=== PATIENT | female | born 2000 | race Caucasian/White ===

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

== ENCOUNTER → 2019-10-15 | Outpatient (CLI) | payer OTHER ==
[2019-10-15 16:33] LABS: BASO # 0.1 x10^3/uL (0.0-0.2); BASO % 1 % (0-3); EOS # 0.1 x10^3/uL (0.0-0.7); EOS % 1 % (0-3); HEMATOCRIT 35.2 % (36.0-47.0); LYMPH # 1.9 x10^3/uL (1.0-4.8); LYMPH % 30 % (24-48); MEAN CORPUSCULAR HEMOGLOBIN 22 pg (25-35); MEAN CORPUSCULAR HGB CONC 31 g/dL (31-37); MEAN CORPUSCULAR VOLUME 69 fL (79-100); MONO # 0.7 x10^3/uL (0.0-1.1); MONO % 11 % (0-9); NEUT # 3.7 x10^3/uL (1.8-7.7); NEUT % 58 % (31-73); PLATELET COUNT 274 x10^3/uL (140-400); RED BLOOD COUNT 5.09 x10^6/uL (3.50-5.40); RED CELL DISTRIBUTION WIDTH 18.9 % (11.5-14.5); WHITE BLOOD COUNT 6.4 x10^3/uL (4.0-11.0)
[2019-10-15 17:04] LABS: ALBUMIN 3.8 g/dL (3.4-5.0); ALBUMIN/GLOBULIN RATIO 0.8 (1.0-1.7); CALCIUM 9.1 mg/dL (8.5-10.1); CREATININE 0.9 mg/dL (0.6-1.0); GFR 79.8; POTASSIUM 4.8 mmol/L (3.5-5.1); TOTAL BILIRUBIN 0.2 mg/dL (0.2-1.0); TOTAL PROTEIN 8.5 g/dL (6.4-8.2)
[2019-10-15 17:14] LABS: PREG TEST PT QUAL NEGATIVE (NEG)
[2019-10-15 19:09] LABS: ANISOCYTOSIS SLIGHT; HYPOCHROMIA MOD; MICROCYTOSIS MOD
[2019-10-15 19:10] LABS: PLT ESTIMATE ADEQUATE (ADEQUATE)
== END | disposition home or self-care (01) ==
LOC: LAB 16:08
PROVIDERS: ATTEND Psychiatry & Neurology Neurology
DX: R51 Headache (principal); R00.0 Tachycardia, unspecified
CPT/HCPCS: 36415; 80053; 84703; 85025; 85651

== ENCOUNTER → 2019-10-28 | Outpatient (CLI) | payer OTHER ==
[~2019-10-28] MED LIST: GADOTERATE 7.5 MMOL/15ML VIAL. IVP ONE
--- NOTE | 2019-10-28 10:17 | EKG ---
[facility] [address] [place] [address] Test Date: 2019-10-28 Test Time: 10:09:33 Pat Name: SAUL BEAL Department: Room: Gender: F Oxygen Tank Filler: SARAH : 2000 Requested By: KELLI NG Order Number: [id number] Reading MD: Measurements Intervals [place] Rate: 93 P: -28 PA: 120 QRS: 42 QRSD: 72 T: 39 QT: 344 QTc: 430 Interpretive Statements SINUS RHYTHM LEFT ATRIAL ABNORMALITY ABNORMAL ECG RI6.02 No previous ECG available for comparison
--- NOTE | 2019-10-28 11:15 | RAD ---
MRI Brain with and without contrast History: Increasing headaches Technique: Multiplanar, multi sequential pre and postcontrast MR imaging was performed of the brain. Comparison: None Findings: There is some motion degradation. There is no evidence of recent infarct or cytotoxic edema. The ventricles, sulci, and cisterns are within normal limits in size and configuration. There is no significant midline shift, intraaxial mass effect, or focal abnormal extra-axial fluid collection. There is no significant signal abnormality of the brain parenchyma. There is no nodular parenchymal or leptomeningeal enhancement. There is preservation of the major intracranial flow-voids at the skull base. The cerebellar tonsils are normal in location. There is no significant abnormality of the pineal gland or pituitary gland. There is negligible patchy ethmoid air cell mucosal thickening. The mastoid air cells are aerated. There is preserved marrow signal of the clivus. Impression: 1. There is no significant intracranial abnormality. MRA Brain History:Increasing headaches Technique: 3-D [id number] MR angiography was performed of the brain. Comparison: None Findings: Determination of any degree of stenosis is based on NASCET criteria. There is fairly prominent motion degradation. Both vertebral arteries constitute the basilar artery. There is visualization of segments bilateral PICAs, AICAs, and superior cerebellar arteries. There is visualization of bilateral posterior communicating arteries. There is visualization of the internal carotid arteries bilaterally at the skull base. There is somewhat hypoplastic right A1 segment. There is patent anterior communicating artery. There is appearance of wall irregularity of the proximal right M1 segment although may be accentuated by motion degradation. No significant intracranial aneurysm is identified. Impression: 1. Exam is degraded by motion. There is appearance of wall irregularity of the proximal right M1 segment, difficult to exclude stenosis and wall irregularity in this region although findings may be due to motion. Electronically signed by: Felice Verdugo MD (10/28/2019 11:13 AM) [facility]
== END | disposition home or self-care (01) ==
LOC: MRI 09:31
PROVIDERS: ATTEND Psychiatry & Neurology Neurology
DX: J34.89 Other specified disorders of nose and nasal sinuses (principal); G08 Intracranial and intraspinal phlebitis and thrombophlebitis; R94.31 Abnormal electrocardiogram [ECG] [EKG]
CPT/HCPCS: 70544; 70553; 93005; A9575

== ENCOUNTER → 2019-12-14 | Outpatient (CLI) | payer OTHER ==
--- NOTE | 2019-12-14 13:20 | RAD ---
ANGIOGRAPHY BRAIN WO/W CONT History: Headaches. Technique: Multiplanar multisequence MRV without and with contrast. 3-D reconstructions were performed. Comparison: December 03, 2019 Findings: Congenitally small left transverse sinus. Patent superior sagittal, transverse and sigmoid venous sinuses. Additional cerebral veins venous sinuses are patent. No evidence of stenosis or occlusion. Impression: 1. No evidence of sinus venous thrombosis. Electronically signed by: Jose Miguel Mahoney DO (12/14/2019 1:17 PM) [email or web address]
== END | disposition home or self-care (01) ==
LOC: MRI 10:57
PROVIDERS: ATTEND Psychiatry & Neurology Neurology
DX: G08 Intracranial and intraspinal phlebitis and thrombophlebitis (principal)
CPT/HCPCS: 70546; A9575

== ENCOUNTER → 2020-02-10 | Outpatient (CLI) | payer OTHER ==
[2020-02-10 13:06] LABS: CHOLESTEROL/HDL RATIO 3.2
[2020-02-14 12:51] LABS: PROTEIN C ACTIVITY SEE SEPARATE REPORT; PROTEIN S ACTIVITY SEE SEPARATE REPORT
[2020-02-14 12:52] LABS: ANTITHROMBIN III SEE SEPARATE REPORT
== END | disposition home or self-care (01) ==
LOC: LAB 10:45
PROVIDERS: ATTEND Psychiatry & Neurology Neurology
DX: G08 Intracranial and intraspinal phlebitis and thrombophlebitis (principal)
CPT/HCPCS: 36415; 80061; 82947; 83090; 85300; 85302; 85306

== ENCOUNTER → 2021-11-17 | Outpatient (CLI) | payer OTHER ==
[~2021-11-17] MED LIST changes: +DIPH25CA58 PO; +DULO60CA7 PO; -GADOTERATE 7.5 MMOL/15ML VIAL. IVP ONE; +MELA10CA PO; +TOPI50TA8 PO; +birth control; +birth control PO
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
== END | disposition home or self-care (01) ==
LOC: PNCL 12:15
PROVIDERS: ATTEND Anesthesiology
DX: M25.511 Pain in right shoulder (principal); Z79.899 Other long term (current) drug therapy
CPT/HCPCS: G0463